=== PATIENT | female | born 1985 | race Caucasian/White ===

== ENCOUNTER 2020-08-02 13:39 | Outpatient (REF) | payer OTHER, SELFPAY ==
[2020-08-03 08:24] LABS: BV Int Neg Control Negative (Negative); BV Int Pos Control Positive (Positive)
[2020-08-03 14:56] LABS: C. trachomatis RNA TMA NOT DETECTED (NOT DETECTED); N. gonorrhoeae RNA TMA NOT DETECTED (NOT DETECTED)
[2020-08-07 13:31] LABS: HPV mRNA E6/E7 rflx Not Detected (Not Detected)
== END 2020-08-02 13:40 | disposition home or self-care (01) ==
LOC: HO.LAB 13:39
PROVIDERS: PCP Family Medicine Geriatric Medicine; Visit Provider Advanced Practice Midwife
DX: Z01.419 Encounter for gynecological examination (general) (routine) without abnormal findings (principal); Z11.51 Encounter for screening for human papillomavirus (HPV); L63.9 Alopecia areata, unspecified; Z20.2 Contact with and (suspected) exposure to infections with a predominantly sexual mode of transmission; Z87.42 Personal history of other diseases of the female genital tract
CPT/HCPCS: 36415; 87480; 87491; 87510; 87591; 87624; 87660; 88142

== ENCOUNTER 2022-11-04 10:19 | Outpatient (REF) | payer OTHER, SELFPAY ==
[2022-11-05 05:53] LABS: CT PCR NOT DETECTED (Not Detect.); NG PCR NOT DETECTED (Not Detect.)
[2022-11-05 12:04] LABS: BV Int Neg Control Negative (Negative); BV Int Pos Control Positive (Positive)
[2022-11-07 02:29] LABS: HPV mRNA E6/E7 rflx Not Detected (Not Detected)
== END 2022-11-04 10:20 | disposition home or self-care (01) ==
LOC: HO.LNP 10:19
PROVIDERS: PCP Family Medicine Geriatric Medicine; Visit Provider Advanced Practice Midwife
DX: Z01.419 Encounter for gynecological examination (general) (routine) without abnormal findings (principal); L63.9 Alopecia areata, unspecified; Z87.42 Personal history of other diseases of the female genital tract; Z98.51 Tubal ligation status; Z20.2 Contact with and (suspected) exposure to infections with a predominantly sexual mode of transmission; Z79.899 Other long term (current) drug therapy
CPT/HCPCS: 0353U; 87480; 87510; 87624; 87660; 88142

== ENCOUNTER 2023-11-11 11:36 | Outpatient (AMB) | payer OTHER, SELFPAY ==
--- NOTE | 2023-11-11 11:46 | A.OFFVIS_ITS ---
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 Doing well with concerns: Decreased libido for a last year and a half, she is tired in overwhelmed with working many hours, housework, household duties and children. She report speaking with Glo Anderson last year and was suggested she has OCD due to her excessive cleaning for vulvar hygiene as she dislikes any discharge and reports some dryness, showers twice a day. She admits to self- esteem issues with her body image. She reports her partner is caring, supportive and very understanding. She tries to eat healthy and stays active with exercise. Regular monthly menses. History of bilateral tubal ligation. Currently is sexually active with same partner of 19 years. She denies vaginal itching and irritation. STI screening offered; she declined. Denies family history of breast, ovarian or colon cancer. Last pap smear 2020, negative. History of LEEP. [facility] Medical History Hx of abnormal cervical Pap smear Chronic constipation Surgical History History of loop electrical excision procedure (LEEP) Hx of tubal ligation Family History Son Heart abnormality Maternal Aunt Colon cancer Social History Alcohol intake: never Gender identity: Female Female Reproductive History Menstrual Age of Menarche: 13 Duration of menses: 6-7 days Date of last menstrual period: 11/02/23 control method: permanent sterilization Total pregnancies: 7 Full term: 5 Number of Living Children: 5 Ab spontaneous: 2 Date of last pap smear: 11/05/22 (negative) History of abnormal pap smear: Yes (2012 CIN3) Review of Systems Const All systems reviewed & are unremarkable except as noted in HPI and below Reports as per HPI Eyes Reports no additional complaints ENT Reports no additional complaints Card Reports no additional complaints Resp Reports no additional complaints GI Reports as per HPI and Reports no additional complaints Reports as per HPI Musc Reports no additional complaints Skin/Breast Reports as per HPI Neuro Reports no additional complaints Psych Reports no additional complaints Endo Reports no additional complaints Jose/Lymph Reports no additional complaints Aller/Immun Reports no additional complaints Physical Exam Vital Signs: Last Vital Signs BP 120/70 11/11/23 11:48 BMI result Body Mass Index 29.5 Const General: cooperative, healthy appearing, no acute distress, well developed and alert Orientation/consciousness: patient oriented x3 HEENT Head: Yes normal to inspection Eyes General: appearance normal, both eyes and all related structures Neck Neck: Yes normal visual inspection Thyroid: Thyroid normal Chest Chest palpation & inspection: normal inspection of the chest and other (no puckering, dimpling, peau de orange, retraction, discharge, masses) Breast/axilla inspection: normal inspection of the breasts Breast/axilla palpation: normal palpation of the breasts Resp Effort & Inspection: normal respiratory effort GI Inspection: Yes normal to inspection Palpation (GI): Soft to palpation Rectal Exam - Female: deferred General: Yes bladder normal to palpation External Female Exam: normal external appearance and normal appearance of the urethra Speculum Exam - Vagina: normal appearance of the vagina, normal palpation and normal vaginal discharge Speculum Exam - Cervix: normal appearance of the cervix, normal palpation, Nabothian cyst present (Multiple) and Other cervical findings present (Post LEEP appearance, bled slightly with Pap) Bimanual exam- vagina & uterus: normal bimanual exam, normal palpation, uterine size normal, bladder normal to palpation, normal palpation and non-tender Bimanual Exam- Adnexa, other: no masses Skin General skin exam: no rashes or lesions noted Rashes: no rashes Neuro General: patient oriented x3 Cognition (Neuro): normal cognition Extrem General: Yes normal to inspection Psych Attitude: cooperative Thought process: Normal thought process present Assessment & Plan Assessment & Plan (1) Encounter for gynecological examination (general) (routine) with abnormal findings: Code(s): Z01.411 - Encounter for gynecological examination (general) (routine) with abnormal findings Category: Medical Plan: Discussed: Current recommendations for pap smears per ASCCP guidelines. Pap smear obtained. Breast awareness and periodic breast exams. Maintain a healthy lifestyle including a well balanced diet and routine exercise. Libido concerns, excessive hygiene practices, purpose of vaginal discharge and natural ciro balance. Consider therapy, patient declines referral and will pursue a therapist on her own. Self-esteem concerns, encouraged to follow through with therapy. Patient verbalizes understanding and agrees to the plan of care. She was given opportunity to ask questions and all questions were answered to the best of my ability. RTO in one year for annual lime kiln operator examination. This note is constructed using voice recognition software. While every effort has been made to ensure accuracy, commercial sales consultant errors may have been included. Coding Level of Care Code Est Pt Prev Care 18-39y(41308) Diagnoses Encounter for gynecological examination (general) (routine) with abnormal findings Z01.411
[2023-11-11 11:48] VITALS: BP 120/70; BMI 29.5
== END 2023-11-11 12:38 | disposition home or self-care (01) ==
PROVIDERS: Visit Provider Advanced Practice Midwife
DX: Z01.411 Encounter for gynecological examination (general) (routine) with abnormal findings (principal)
CPT/HCPCS: 99395

== ENCOUNTER 2023-11-11 11:36 | Outpatient (REF) | payer OTHER, SELFPAY ==
[2023-11-19 01:39] LABS: HPV mRNA E6/E7 rflx Not Detected (Not Detected)
== END 2023-11-11 11:37 | disposition home or self-care (01) ==
LOC: HO.LNP 11:36
PROVIDERS: Visit Provider Advanced Practice Midwife
DX: Z01.411 Encounter for gynecological examination (general) (routine) with abnormal findings (principal); R68.82 Decreased libido; Z87.42 Personal history of other diseases of the female genital tract
CPT/HCPCS: 87624; 88142; 99395

== ENCOUNTER 2024-10-19 12:54 | Outpatient (REF) | payer OTHER, SELFPAY ==
--- OUTSIDE RECORDS SUMMARY | 2024-10-19 14:40 | XMS_ITS | Clinical Summary ---
Author Organization [facility] ity Address [address] [place] [address] Care Team Providers Care Cassandra Developer Name Role Phone Unavailable Primary Care Provider [...]
== END 2024-10-19 12:55 | disposition home or self-care (01) ==
LOC: HO.LAB 12:54
PROVIDERS: PCP Family Medicine Geriatric Medicine; Visit Provider Advanced Practice Midwife
DX: N93.9 Abnormal uterine and vaginal bleeding, unspecified (principal)
CPT/HCPCS: 81025

== ENCOUNTER 2024-10-19 12:54 | Outpatient (AMB) | payer OTHER, SELFPAY ==
[2024-10-19 13:05] VITALS: BP 110/60; BMI 29.5
--- NOTE | 2024-10-19 13:05 | A.OFFVIS_ITS ---
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 History of irregular menstrual bleeding, closely spaced for several months. HMB and cramping x 8-9 days. Has used Midol without relief. Additionally she reports brain fog, forgetfulness, PMS symptoms, weight gain, muscle and joint pain, depression and anxiety, moodiness, including anger, irritability, sensitive to heat and cold changes. History of tubal ligation. [facility] Medical History (Updated 10/19/24 @ 13:39 by Alanis Clifford CNM) Fatigue Abnormal uterine bleeding (AUB) Hx of abnormal cervical Pap smear Chronic constipation Surgical History History of loop electrical excision procedure (LEEP) Hx of tubal ligation Family History Son Heart abnormality Maternal Aunt Colon cancer Social History Alcohol intake: never Gender identity: Female Female Reproductive History Menstrual Age of Menarche: 13 control method: permanent sterilization Permanent Sterilization: BTL Total pregnancies: 7 Full term: 5 Number of Living Children: 5 Ab spontaneous: 2 Date of last pap smear: 11/11/23 (neg pap and hpv) History of abnormal pap smear: Yes (2012 SUYAPA 3 hx leep) Review of Systems Const All systems reviewed & are unremarkable except as noted in HPI and below Physical Exam Vital Signs: Last Vital Signs BP 110/60 10/19/24 13:05 BMI result Body Mass Index 29.5 Const General: cooperative, healthy appearing and no acute distress Orientation/consciousness: patient oriented x3 GI Inspection: Yes normal to inspection Palpation (GI): Soft to palpation and Other GI palpation findings present (Nontender) Rectal Exam - Female: visual inspection normal General: Yes bladder normal to palpation External Female Exam: normal appearance of the urethra Speculum Exam - Vagina: normal appearance of the vagina, normal palpation and normal vaginal discharge Speculum Exam - Cervix: normal appearance of the cervix, normal palpation, Nabothian cyst present (Multiple) and Other cervical findings present (Post LEEP appearance, bled w/culture swab) Bimanual exam- vagina & uterus: normal bimanual exam, normal palpation, uterine size normal, bladder normal to palpation, normal palpation, uterine shape normal and non-tender Bimanual Exam- Adnexa, other: normal adnexae Neuro General: patient oriented x3 Results AMB Test Urine AMB Test Urine Negative Last Edit by ISAAK Butterfield on 10/19/24 13:09 Results Reviewed Results Reviewed: Laboratory Last Values [facility]st Clinic Negative 10/19/24 13:08 Assessment & Plan Assessment & Plan (1) Abnormal uterine bleeding (AUB): Code(s): N93.9 - Abnormal uterine and vaginal bleeding, unspecified Category: Medical Plan: Workup for AUB reviewed to include cervical cultures, pelvic ultrasound and lab work. Possible endometrial biopsy if indicated or hysteroscopy pending findings. Follow up in person for test results and plan of care further discussion on treatment options. Continue with ibuprofen increase the dose to 600 mg every 6 hours with food and fluids with onset of cramping and bleeding, per manufacture's recommendations. The patient expressed understanding and agreement with the plan of care. All of her questions and concerns were addressed to the best of my ability. Total time I personally spent on visit and management today: ?35 minutes. Time spent included review of pertinent office notes in the electronic health record; review of laboratory and imaging results; review of personal family medical history; performing physical exam; discussing diagnosis and plan of care with the patient; documenting the encounter in the EMR. (2) Fatigue: Code(s): R53.83 - Other fatigue Category: Medical Qualifiers: Fatigue type: unspecified Qualified Code(s): R53.83 - Other fatigue Plan: Lab work ordered. Follow up pending results. Plan This note is constructed using voice recognition software. While every effort has been made to ensure accuracy, software project lead errors may have been included. Orders: Orders AMB HCG Urine Test Today N93.9 - Abnormal uterine and vaginal bleeding, unspecified Bacterial Vaginosis Panel Today N93.9 - Abnormal uterine and vaginal bleeding, unspecified Complete Blood Count no Diff Today N93.9 - Abnormal uterine and vaginal bleeding, unspecified, R53.83 - Other fatigue CT NG by PCR Today N93.9 - Abnormal uterine and vaginal bleeding, unspecified US pelvic and transvaginal Today N93.9 - Abnormal uterine and vaginal bleeding, unspecified Thyroid Stimulating Hormone Today N92.1 - Excessive and frequent menstruation with irregular cycle Vitamin D 25-OH (D2 and D3) Today R53.83 - Other fatigue Coding Level of Care Code Est Pt Level 3 (85321) Diagnoses Abnormal uterine bleeding (AUB) N93.9 Fatigue, unspecified type R53.83 Fatigue type: unspecified
--- OUTSIDE RECORDS SUMMARY | 2024-10-19 14:02 | XMS_ITS | Clinical Summary ---
Author Organization [facility] ity Address [address] [place] [address] Care Team Providers Care Manager Infusion Name Role Phone Unavailable Primary Care Provider Unavailabl e Social History Tobacco Use Types Packs/Day Years Used Date Smoking Tobacco: Never Assessed Comments Unknown Sex and Gender Information Value Date Recorded Sex Assigned at Not on file Legal Sex Female 11:13 AM EST Gender Identity Not on file Sexual Orientation Not on file Plan of Treatment Health Maintenance Due Date Last Done Comments DTaP,Tdap,and Td Vaccines (1 - Tdap) 2004 Hepatitis B Vaccines (1 of 3 - 19+ 3-dose series) 2004 Cervical Cancer Screening: P ap Smear 2006 COVID-19 Vaccine ( - 2023-2 5 season) 2024 Depression Screening 03/22/2024 HIV Screening 03/22/2024 Hepatitis C Screening 03/22/2024 Social Influencers of Health Screening 03/22/2024 Influenza Vaccine (Season Ended) 2025 HIB Vaccines Aged Out No longer eligi ble based on patient's age to complete this topic HPV Vaccines Aged Out No longer eligi ble based on patient's age to complete this topic Hepatitis A Vaccines Aged Out No long er eligible based on patient's age to complete this topic IPV Vaccines Aged Out No longer eligi ble based on patient's age to complete this topic MMR Vaccines Aged Out No longer eligi ble based on patient's age to complete this topic Meningococcal ACWY Vaccine Aged Out N o longer eligible based on patient's age to complete this topic Meningococcal B Vaccine Aged Out No l onger eligible based on patient's age to complete this topic Pneumococcal Vaccine: Pediat rics (0 to 5 Years) and At-Risk Patients (6 to 64 Years) Aged Out No longer eligible b ased on patient's age to complete this topic RSV Immunization Patients Un german 20 months Aged Out No longer eligible b ased on patient's age to complete this topic Varicella Vaccines Aged Out No longer eligible based on patient's age to complete this topic
== END 2024-10-19 13:32 | disposition home or self-care (01) ==
LOC: HO.HWS 12:54
PROVIDERS: PCP Family Medicine Geriatric Medicine; Visit Provider Advanced Practice Midwife
DX: N93.9 Abnormal uterine and vaginal bleeding, unspecified (principal); R53.83 Other fatigue
CPT/HCPCS: 99213

== ENCOUNTER 2024-10-19 13:23 | Outpatient (REF) | payer OTHER, SELFPAY ==
[2024-10-19 13:59] LABS: Hematocrit 40.7 % (37.0-47.0); Hemoglobin 13.8 g/dl (12.0-16.0); Mean Corpuscular HGB Conc 33.9 g/dl (31.0-35.0); Mean Corpuscular Hemoglobin 28.4 pg (27.0-33.0); Mean Corpuscular Volume 83.7 fL (80.0-98.0); Mean Platelet Volume 10.6 fL (9.4-12.3); Platelet Count 244 X10*3/uL (160-400); Red Blood Count 4.86 X10*6/uL (4.20-5.50); Red Cell Distribution Width 13.4 % (11.0-16.0); White Blood Count 8.2 X10*3/uL (4.8-10.8)
[2024-10-19 14:41] LABS: Thyroid Stimulating Hormone 2.38 uIU/mL (0.32-4.0)
[2024-10-19 16:42] LABS: Bacterial Vaginosis PCR NEGATIVE (Negative); Candida Group PCR NOT DETECTED (Not Detect); Candida glab krusei PCR NOT DETECTED (Not Detect); Trichomonas vaginalis PCR NOT DETECTED (Not Detect)
[2024-10-19 17:16] LABS: CT PCR NOT DETECTED (Not Detect.); NG PCR NOT DETECTED (Not Detect.)
[2024-10-23 14:48] LABS: Vitamin D 25-OH, D2 <4 ng/mL; Vitamin D 25-OH, D3 14 ng/mL; Vitamin D 25-OH, Total 14 ng/mL (30-100)
== END 2024-10-19 13:24 | disposition home or self-care (01) ==
LOC: HO.LNP 13:23
PROVIDERS: Visit Provider Advanced Practice Midwife
DX: N93.9 Abnormal uterine and vaginal bleeding, unspecified (principal); N92.1 Excessive and frequent menstruation with irregular cycle; R53.83 Other fatigue; Z20.2 Contact with and (suspected) exposure to infections with a predominantly sexual mode of transmission
CPT/HCPCS: 81515; 82306; 84443; 85027; 87491; 87591

== ENCOUNTER 2024-10-27 15:04 | Outpatient (AMB) | payer OTHER, SELFPAY ==
--- NOTE | 2024-10-27 15:04 | MHC.OFFVIS ---
Intake Visit Reasons: TV lab results Intake Note: cell # [phone] [employer] [place] [facility]: [employer] [facility] [place] [facility] Present Allergies No Known Drug Allergies Allergy (Unknown, Verified 10/19/24 13:05) U sertraline [Zoloft] Allergy (Unknown, Verified 10/19/24 13:05) rash Is last menstrual period known: Yes HPI Comments Details: Tele Health Visit Total time I personally spent on visit and management today: 20 minutes. Time spent included review of pertinent office notes in the electronic health record; review of laboratory and imaging results; review of personal family medical history; discussing diagnosis and plan of care with the patient; documenting the encounter in the EMR. Patient presents to discuss: Lab results-history of abnormal uterine bleeding, and fatigue. Labs: Vitamin-D 14. TSH 2.38. Hemoglobin 13.8. PFSH Medical History (Updated 10/27/24 @ 15:50 by Alanis Clifford CNM) Vitamin D deficiency Fatigue Abnormal uterine bleeding (AUB) Hx of abnormal cervical Pap smear Chronic constipation Surgical History History of loop electrical excision procedure (LEEP) Hx of tubal ligation Family History Son Heart abnormality Maternal Aunt Colon cancer Social History Alcohol intake: never Gender identity: Female Female Reproductive History Menstrual Age of Menarche: 13 Review of Systems Const All systems reviewed & are unremarkable except as noted in HPI and below Endo Reports no additional complaints Physical Exam Const General: cooperative, healthy appearing and no acute distress Psych Appearance: well kempt Attitude: cooperative Thought process: Normal thought process present Telehealth Telehealth Telehealth Platform: BestBoy Keyboard Location of provider rendering services: practice address Location of patient: address on file Patient Identification confirmed using: Name, : Yes Telehealth method: video Patient verbally consented to treatment: Yes Patient verbally consented to billing insurance company: Yes Patient informed of any privacy concerns related to visit: Yes Assessment & Plan Assessment & Plan (1) Abnormal uterine bleeding (AUB): Code(s): N93.9 - Abnormal uterine and vaginal bleeding, unspecified Category: Medical Plan: Reviewed plan of care for appointment follow up. Ultrasound scheduled an EMB will be combined with the Mirena insertion appointment. Follow up EMB appointment will be combined with annual exam. Patient to have her appointments readjusted. Rx sent in for menstrual cramping to the pharmacy. The patient expressed understanding and agreement with the plan of care. All of her questions and concerns were addressed to the best of my ability. (2) Vitamin D deficiency: Comment: Supplementing 50 mcg Code(s): E55.9 - Vitamin D deficiency, unspecified Category: Medical Plan Discussed labs today Rx sent in for vitamin-D supplementation, directions reviewed for taking, consider rechecking level in 4-5 months. The patient expressed understanding and agreement with the plan of care. All of her questions and concerns were addressed to the best of my ability. This note is constructed using voice recognition software. While every effort has been made to ensure accuracy, experience design director errors may have been included. Medications: New cholecalciferol (vitamin D3) 50 mcg PO DAILY 3 months 90 caps 1RF ibuprofen take medication 1-3 days of your menses for cramping with food 600 mg PO Q6H PRN 60 tabs 0RF pain Coding Level of Care Code Est Pt Level 3 (16912) Diagnoses Abnormal uterine bleeding (AUB) N93.9 Vitamin D deficiency E55.9
--- OUTSIDE RECORDS SUMMARY | 2024-10-27 15:43 | XMS_ITS | Clinical Summary ---
Author Organization [facility] ity Address [address] [place] [address] Care Team Providers Care Insurance Counselor Name Role Phone Unavailable Primary Care Provider [...] complete this topic RSV Immunization Patients Un egrman 20 months Aged Out No longer eligible b ased on patient's age to complete this topic Varicella Vaccines Aged Out No longer eligible based on patient's age to complete this topic
== END 2024-10-28 07:25 | disposition home or self-care (01) ==
LOC: HO.HWS 15:04
PROVIDERS: PCP Family Medicine Geriatric Medicine; Visit Provider Advanced Practice Midwife
DX: N93.9 Abnormal uterine and vaginal bleeding, unspecified (principal); E55.9 Vitamin D deficiency, unspecified
CPT/HCPCS: 99213

== ENCOUNTER 2024-12-29 15:44 | Outpatient (REF) | payer OTHER, SELFPAY ==
--- NOTE | ~2024-12-29 | US_ITS ---
EXAMINATION: US PELVIS CLINICAL INFORMATION: Abnormal uterine/vaginal bleeding, irregular menses COMPARISON: July 01 2016 TECHNIQUE: Ultrasound of the pelvis is performed using both transabdominal and transvaginal transducers along with Doppler. Transvaginal imaging is performed due to inadequate visualization transabdominally. FINDINGS: Uterus: The uterus is anteverted and measures 9.0 x 4 x 5 cm. The double wall endometrial thickness is 6 mm. The uterus is smooth in contour and has normal myometrial echogenicity. No visible fibroid. Adnexa: Both ovaries are visualized. There is normal color flow to the adnexa. There is no ovarian torsion. There is no pelvic ascites or fluid collection. Right ovary measures 5.5 x 3.5 x 4.2 cm. There is a 3.8 x 2.7 x 3.9 cm anechoic cyst Left ovary measures 2.6 x 1.9 x 2.2 cm. US/US pelvic and transvaginal IMPRESSION: 3.9 cm anechoic simple cyst in the right ovary requires no imaging follow-up. Electronically signed by: Preet Berry MD 12/29/2024 04:23 PM EDT
--- OUTSIDE RECORDS SUMMARY | 2024-12-29 16:13 | XMS_ITS | Clinical Summary ---
[facility] Address [address] [place] [address] Care Team Providers Care Dairy Supplies Sales Representative Name Role Phone Unavailable Primary Care Provider [...] Influencers of Health Screening 03/22/2024 Influenza Vaccine (#1) 2025 HIB Vaccines Aged Out No longer [...] 5 Years) and At-Risk Patients (6 to 49 Years) Aged Out No longer eligible b ased on patient's age to complete this topic RSV Immunization Patients Un german 20 months Aged Out No longer eligible b ased on patient's age to complete this topic Varicella Vaccines Aged Out No longer eligible based on patient's age to complete this topic
== END 2024-12-29 15:45 | disposition home or self-care (01) ==
LOC: HO.US 15:44
PROVIDERS: PCP Family Medicine Geriatric Medicine; Visit Provider Advanced Practice Midwife
DX: N93.9 Abnormal uterine and vaginal bleeding, unspecified (principal)
CPT/HCPCS: 76830; 76856

== ENCOUNTER → 2024-12-29 15:45 | Outpatient (BNV) | payer OTHER, SELFPAY | PROVIDERS: PCP Family Medicine Geriatric Medicine; Visit Provider Radiology Diagnostic Radiology | DX: N93.9 Abnormal uterine and vaginal bleeding, unspecified (principal) | CPT/HCPCS: 76830; 76856 ==

== ENCOUNTER 2025-01-25 15:42 | Outpatient (AMB) | payer OTHER, SELFPAY ==
--- NOTE | 2025-01-25 15:42 | MHC.OFFVIS ---
Intake Visit Reasons: ultra sound follow up/emb/? mirena Neon Electrician: Neon Electrician Present (Rosa) Accompanied by: Spouse Allergies No Known Drug Allergies Allergy (Unknown, Verified 01/31/25 13:25) U sertraline (Zoloft) Allergy (Unknown, Verified 01/31/25 13:25) rash Is last menstrual period known: Yes HPI Comments Details: Patient is here today for a follow up due to AUB for EMB, accompanied by her , Martir. Bled from November 27-December 13, December 22-, currently bleeding. Was considering a Mirena IUD insert, but is uncertain, wants to speak to her oil field tester about risk factors with potential hair loss. History of alopecia, now and a BRITTANY inhibitor trial. [facility] Medical History (Updated 01/31/25 @ 16:36 by Alanis Clifford CNM) IUD (intrauterine device) in place Ovarian cyst Vitamin D deficiency Fatigue Abnormal uterine bleeding (AUB) Hx of abnormal cervical Pap smear Chronic constipation Surgical History History of loop electrical excision procedure (LEEP) Hx of tubal ligation Family History Son Heart abnormality Maternal Aunt Colon cancer Social History Alcohol intake: never Gender identity: Female Female Reproductive History Menstrual Age of Menarche: 13 Review of Systems Const All systems reviewed & are unremarkable except as noted in HPI and below Endo Reports no additional complaints Physical Exam Const General: cooperative, healthy appearing and no acute distress Psych Appearance: well kempt Attitude: cooperative Thought process: Normal thought process present Assessment & Plan Assessment & Plan (1) Ovarian cyst: Code(s): N83.209 - Unspecified ovarian cyst, unspecified side Category: Medical Qualifiers: Laterality: right Qualified Code(s): N83.201 - Unspecified ovarian cyst, right side Plan: Discussed by benign cyst less than 4 cm, if any pain follow up in the office sooner, or sudden significant pain to report to the ED plan recheck not necessary patient feels strongly about repeating in checking on the cyst would like to complete another ultrasound. Orders placed plan follow up visit. The patient expressed understanding and agreement with the plan of care. All of her questions and concerns were addressed to the best of my ability. (2) Abnormal uterine bleeding (AUB): Code(s): N93.9 - Abnormal uterine and vaginal bleeding, unspecified Category: Medical Plan Plan follow up EMB/Mirena same day, after she speaks w/her oil field tester tomorrow regarding Mirena use and concerns for hair loss. Reschedule appointment for combined procedures. Pre procedure counseling, anticipatory guidance-take 3 Ibuprofen one hour before procedure w/food and fluids. CBC today. Advised to hydrate well and report any increase in bleeding pattern or symptoms. The patient expressed understanding and agreement with the plan of care. All of her questions and concerns were addressed to the best of my ability. Orders: Orders US pelvic and transvaginal 2 Months N83.209 - Unspecified ovarian cyst, unspecified side Complete Blood Count no Diff 01/25/25 N93.9 - Abnormal uterine and vaginal bleeding, unspecified AMB HCG Urine Test 01/26/25 Z32.02 - Encounter for test, result negative Coding Level of Care Code Tele Est Pt Level 3 (85009) Diagnoses Cyst of right ovary N83.201 Laterality: right Abnormal uterine bleeding (AUB) N93.9
--- OUTSIDE RECORDS SUMMARY | 2025-01-25 15:44 | XMS_ITS | Clinical Summary ---
Author Organization [facility] [employer] [facility] ity Address [address] [place] [address] Care Team Providers Care Manager Statistical Name Role Phone Unavailable Primary Care Provider [...] Vaccine ( - 2023-2 5 season) 2024 HIV Screening 03/22/2024 Hepatitis C Screening 03/22/2024 Social Influencers of Health Screening 03/22/2024 Depression Screening 06/15/2024 Influenza Vaccine (#1) 2025 HIB Vaccines Aged [...]
== END 2025-01-25 17:07 | disposition home or self-care (01) ==
LOC: HO.HWS 15:42
PROVIDERS: PCP Family Medicine Geriatric Medicine; Visit Provider Advanced Practice Midwife
DX: N83.201 Unspecified ovarian cyst, right side (principal); N93.9 Abnormal uterine and vaginal bleeding, unspecified
CPT/HCPCS: 99213

== ENCOUNTER 2025-01-25 15:42 | Outpatient (REF) | payer OTHER, SELFPAY ==
[2025-01-25 16:50] LABS: Hematocrit 40.1 % (37.0-47.0); Hemoglobin 13.2 g/dl (12.0-16.0); Mean Corpuscular HGB Conc 32.9 g/dl (31.0-35.0); Mean Corpuscular Hemoglobin 28.0 pg (27.0-33.0); Mean Corpuscular Volume 85.0 fL (80.0-98.0); NRBC Abs Auto 0.000 X10*3/uL (0.0-0.012); NRBC Pct Auto 0.0 /100WBC (0.0-0.2); Platelet Count 219 X10*3/uL (160-400); Red Blood Count 4.72 X10*6/uL (4.20-5.50); White Blood Count 14.3 X10*3/uL (4.8-10.8)
== END 2025-01-25 15:43 | disposition home or self-care (01) ==
LOC: HO.LAB 15:42
PROVIDERS: PCP Family Medicine Geriatric Medicine; Visit Provider Advanced Practice Midwife
DX: N83.201 Unspecified ovarian cyst, right side (principal); N93.9 Abnormal uterine and vaginal bleeding, unspecified; Z32.02 Encounter for pregnancy test, result negative
CPT/HCPCS: 36415; 85027

== ENCOUNTER → 2025-01-26 09:23 | Outpatient (BNV) | payer OTHER, SELFPAY | PROVIDERS: PCP Family Medicine Geriatric Medicine; Visit Provider Advanced Practice Midwife | DX: Z32.02 Encounter for pregnancy test, result negative (principal) | CPT/HCPCS: 81025 ==

== ENCOUNTER 2025-01-31 13:17 | Outpatient (REF) | payer OTHER, SELFPAY | END 2025-01-31 13:18 | disposition home or self-care (01) | LOC: HO.LNP 13:17 | PROVIDERS: PCP Family Medicine Geriatric Medicine; Visit Provider Advanced Practice Midwife | DX: Z30.430 Encounter for insertion of intrauterine contraceptive device (principal); N93.9 Abnormal uterine and vaginal bleeding, unspecified; Z32.02 Encounter for pregnancy test, result negative | CPT/HCPCS: 58100; 58300; 81025; 88305; J7298 ==

== ENCOUNTER 2025-01-31 13:17 | Outpatient (AMB) | payer OTHER, SELFPAY ==
--- NOTE | 2025-01-31 13:24 | A.OFFVIS_ITS ---
Vital Signs 01/31/25 13:25 Height 5 ft 1 in BP 120/76 Intake Visit Reasons: EMB/ Mirena insertion Multiple Needle Stitcher: Multiple Needle Stitcher Present (Rayne) Allergies No Known Drug Allergies Allergy (Unknown, Verified 01/31/25 13:25) U sertraline (Zoloft) Allergy (Unknown, Verified 01/31/25 13:25) rash Is last menstrual period known: Yes Last menstrual period: 01/22/25 HPI Comments Details: Patient is here today for an endometrial biopsy and Mirena IUD insertion. History of AUB. UPT is negative. Currently on her cycle. History of tubal ligation. [facility] Medical History (Updated 01/25/25 @ 16:24 by Alanis Clifford CNM) Ovarian cyst Vitamin D deficiency Fatigue Abnormal uterine bleeding (AUB) Hx of abnormal cervical Pap smear Chronic constipation Surgical History History of loop electrical excision procedure (LEEP) Hx of tubal ligation Family History Son Heart abnormality Maternal Aunt Colon cancer Social History Alcohol intake: never Gender identity: Female Female Reproductive History Menstrual Age of Menarche: 13 Date of last menstrual period: 01/22/25 Review of Systems Const All systems reviewed & are unremarkable except as noted in HPI and below Physical Exam Vital Signs: Last Vital Signs BP 120/76 01/31/25 13:25 Const General: cooperative, healthy appearing and no acute distress Orientation/consciousness: patient oriented x3 GI Inspection: Yes normal to inspection Palpation (GI): Soft to palpation and Other GI palpation findings present (Nontender) Rectal Exam - Female: visual inspection normal General: Yes bladder normal to palpation External Female Exam: normal appearance of the urethra Speculum Exam - Vagina: normal appearance of the vagina, normal palpation and normal vaginal discharge Speculum Exam - Cervix: normal appearance of the cervix, normal palpation and Other cervical findings present (Post LEEP appearance ) Bimanual exam- vagina & uterus: normal bimanual exam, normal palpation, uterine size normal, bladder normal to palpation, normal palpation, uterine shape normal and non-tender Bimanual Exam- Adnexa, other: normal adnexae Neuro General: patient oriented x3 Office Procedures IUD Insert/Removal Details Procedure code (CPT) selection complete Endometrial Biopsy Details: The patient is here today for an endometrial biopsy due to AUB to rule out any pathology including atypical, hyperplasia or cancer cells of the uterus. She was counseled regarding anticipatory guidance for the procedure including the risks for pain, infection, bleeding, perforation, potential injury to the tissues may include the cervix, uterus, tubes, bladder and bowels. These injuries may include further treatment and evaluation including surgery, blood transfusions, antibiotics, hospitalizations and anesthesia. Permanent injury and scarring can occur. She was consented for the procedure, and the consent forms were signed. She is agreeable to have the procedure today. All questions were answered. Endometrial Biopsy Procedure: The patient was placed in the dorsal lithotomy position and a sterile speculum inserted. Using aseptic technique for the procedure. The cervix was cleansed with Betadine x 3 swabs. A single toothed tenaculum was placed on the cervix for stabilization and the uterus was sounded to 7 cm with a 4mm pipelle, and tissue sample obtained. Minimal bleeding was observed. The tissue sample was placed in formalin in a patient labeled container by staff assisting and sent to the pathology department for processing and interpretation. The patient tolerate the procedure well and was in good condition when leaving the department. Endometrial Biopsy Post Procedure Care: Nothing in the vagina including: tampons, douching or intimacy until all the bleeding has subsided. There may be some post procedure bleeding for several days, this bleeding is usually light and may turn to a light brown or pink color. Mild cramps may occurs. Nothing in the vaginal including: tampons, douching, or intimacy until all the bleeding has subsided. You may take an over the counter mild analgesic such as Tylenol or Advil (if no allergies) per the manufactures recommendation on dosing, frequency, and follow the directions completely. Call the office if any: fever (over 100.4), flu like symptoms, abdominal pain (worse than cramping), foul smelling, infected appearing vaginal discharge, or heavy bleeding. If indicated: Use condoms to prevent and STI's, and only after the bleeding has stopped completely. Return to the office in 2 weeks for results and plan of care. This note is constructed using voice recognition software. While every effort has been made to ensure accuracy, termite inspector errors may have been included. 97274-Nndyaaehaay Biopsy IUD Insert/Removal Details Details: The patient is here today for a Mirena IUD insertion. She was counseled on the side effects including: menstrual cycle changes, pain, infection, bleeding, or expulsion. Risks of injury to the vagina, cervix, uterus, tubes, ovaries, bowel, bladder, and any adjacent tissue, resulting in nerve damage, scarring, and pain. Risks complications for the procedure that may require other test including ultrasounds, Xray, CT or MRI scan, surgery, anesthesia, blood transfusion. A urine test was completed and was negative. She was consented for the IUD insertion and has signed the consent form. All questions were answered. IUD Insertion: The patient was placed in the dorsal lithotomy position and a sterile speculum was inserted. The procedure was completed under aseptic technique. The cervix and vagina were cleansed with a Betadine solution x 3 swabs. A single toothed tenaculum was applied to the cervix for stabilization, and the uterus was sounded to 7 cm. The device was inserted and released with a gentle motion. Bleeding from the tenaculum sites and the procedure were minimal. The strings were trimmed to 3cm. All of the equipment was removed and the bimanual was normal, no tip was palpable at the cervical os. The patient tolerated the procedure well and left the office in good condition. Post IUD Insertion Care: There may be some post insertion bleeding for several days that is usually light and can turn to a light brown or pink in color. Mild cramping may occur. Nothing in the vagina including: tampons, douching or intimacy for several days. You may take an over the counter mild analgesia like Tylenol or Advil (if no allergies), per the manufacturers recommendations on dosing and frequency. Follow the directions completely. Call the office if any: fever (over 100.4), flu like symptoms, abdominal pain, worsening cramping not resolved with over the counter medications, foul smelling vaginal odor, signs of infected appearing discharge, or heavy bleeding. Use a condom for a back up method if indicated for 7 days. Always use a condom for STI prevention; IUD's are not protective against STD's. Return to the office in 4-6 weeks for IUD recheck. This note is constructed using voice recognition software. While every effort has been made to ensure accuracy, termite inspector errors may have been included. Procedure code (CPT) selection complete Office Meds Mirena 21 mcg/24 hr (up to 8 years) 52 mg intrauterine device Performing Provider: Alanis Clifford CNM Performing Location: [facility] Administered by: ISAAK Butterfield on 01/31/25 16:04 Dose Route Admin Location Dispensed Lot Number Expiration Date FORMERLY NAMED [facility] [employer] Liaison Officer 1 device intrauterine 1 device [id number] 02/12/27 81473-735-71 [place] Total Dispensed Waste 1 device 0 % Results AMB Test Urine AMB Test Urine Negative Last Edit by ISAAK Butterfield on 01/31/25 13:26 Results Reviewed Results Reviewed: Laboratory Last Values Tst Clinic Negative 01/31/25 13:26 Assessment & Plan Assessment & Plan (1) Abnormal uterine bleeding (AUB): Code(s): N93.9 - Abnormal uterine and vaginal bleeding, unspecified Category: Medical Plan: Endometrial biopsy completed, see procedure notes. (2) Encounter for IUD insertion: Code(s): Z30.430 - Encounter for insertion of intrauterine contraceptive device Plan Mirena IUD inserted. See procedure notes. This note is constructed using voice recognition software. While every effort has been made to ensure accuracy, termite inspector errors may have been included. Orders: Orders Surgical Today N93.9 - Abnormal uterine and vaginal bleeding, unspecified AMB IUD Insertion/Removal - Practice Supplied Today N93.9 - Abnormal uterine and vaginal bleeding, unspecified AMB HCG Urine Test Today N93.9 - Abnormal uterine and vaginal bleeding, unspecified, Z32.02 - Encounter for test, result negative Coding Level of Care Code Procedure Only Diagnoses Abnormal uterine bleeding (AUB) N93.9 Encounter for IUD insertion Z30.430 CPT Codes Endometrial Biopsy - CPT: 12040-Nxnctoxyokc Biopsy ([id number])
[2025-01-31 13:25] VITALS: BP 120/76
--- OUTSIDE RECORDS SUMMARY | 2025-01-31 14:29 | XMS_ITS | Clinical Summary ---
Author Organization [facility] ity Address [address] [place] [address] Care Team Providers Care Leadership Development Manager Name Role Phone Unavailable Primary Care Provider [...]
== END 2025-02-01 07:43 | disposition home or self-care (01) ==
LOC: HO.HWS 13:17
PROVIDERS: PCP Family Medicine Geriatric Medicine; Visit Provider Advanced Practice Midwife
DX: N93.9 Abnormal uterine and vaginal bleeding, unspecified (principal); Z30.430 Encounter for insertion of intrauterine contraceptive device; Z32.02 Encounter for pregnancy test, result negative
CPT/HCPCS: 58100; 58300

== ENCOUNTER 2025-02-22 15:06 | Outpatient (AMB) | payer OTHER, SELFPAY ==
--- NOTE | 2025-02-22 15:07 | A.OFFVIS_ITS ---
Intake Visit Reasons: emb results Art Instructor: Art Instructor Present Allergies No Known Drug Allergies Allergy (Unknown, Verified 01/31/25 13:25) U sertraline (Zoloft) Allergy (Unknown, Verified 01/31/25 13:25) rash Is last menstrual period known: Yes HPI Comments Details: Tele Health Visit Total time I personally spent on visit and management today: 15 minutes. Time spent included review of pertinent office notes in the electronic health record; review of laboratory and imaging results; review of personal family medical history; discussing diagnosis and plan of care with the patient; documenting the encounter in the EMR. Patient presents to discuss: Endometrial biopsy results, history of AUB and recent Mirena IUD insertion. She reports cramping and bleeding not worsening. [facility] Medical History (Updated 01/31/25 @ 16:36 by Alanis Clifford CNM) IUD (intrauterine device) in place Ovarian cyst Vitamin D deficiency Fatigue Abnormal uterine bleeding (AUB) Hx of abnormal cervical Pap smear Chronic constipation Surgical History History of loop electrical excision procedure (LEEP) Hx of tubal ligation Family History Son Heart abnormality Maternal Aunt Colon cancer Social History Alcohol intake: never Gender identity: Female Female Reproductive History Menstrual Age of Menarche: 13 Review of Systems Const All systems reviewed & are unremarkable except as noted in HPI and below Endo Reports no additional complaints Physical Exam Const General: cooperative, healthy appearing and no acute distress Psych Appearance: well kempt Attitude: cooperative Thought process: Normal thought process present Telehealth Telehealth Telehealth Platform: Advanced Brain Monitoring Location of provider rendering services: practice address Location of patient: address on file Patient Identification confirmed using: Name, : Yes Telehealth method: video Patient verbally consented to treatment: Yes Patient verbally consented to billing insurance company: Yes Patient informed of any privacy concerns related to visit: Yes Results Reviewed Results Reviewed: Name: DaveyAlice T Age/Sex: 39/F Attending: Alanis Clifford CNM : 1985 Submitted by: Alanis Clifford CNM Copies to: PRUDENCIO ROBLEDO MD MR #: [id number] Status: DEP REF Collected: 01/31/25 Location: [facility] Received: 02/01/25 Diagnosis Endometrium, biopsy: Benign inactive endometrium with extensive breakdown, and benign endocervical glandular and squamous epithelium; no atypia or carcinoma. Clinical History AUB Microscopic Description Microscopic sections reviewed. Material Received Endometrial biopsy Gross Description Received in formalin labeled ?EMB? is a 1.8 x 1.5 x 0.45 cm aggregate of multiple irregular fragments of congested and hemorrhagic red-maroon tissue, mucus and blood, submitted in toto in a cassette labeled A. CEDS Copies To Alanis Clifford CNM [facility] [address] [place] [address] Drive [address] [place] [address] [id number] PRUDENCIO ROBLEDO MD [address] [place] [address] NOTE: Unless otherwise stated, all tissue is formalin-fixed and paraffin- embedded. Some or all of the immunohistochemical tests reported herein may have been developed and their performance characteristics determined by [facility]. They have not been cleared or approved by the U.S. Food and Drug Administration (FDA). However, the FDA has determined that such clearance or approval is not necessary. This laboratory is certified under the Clinical Laboratory Improvement Amendments of 1988 (CLIA) as qualified to perform high complexity clinical laboratory testing. Patient: Alice Mariscal Age/Sex: 39/F MR#: [id number] Page 1 of 2 Assessment & Plan Assessment & Plan (1) Encounter to discuss test results: Code(s): Z71.2 - Person consulting for explanation of examination or test findings Plan Discussed: Endometrial biopsy results- Diagnosis Endometrium, biopsy: Benign inactive endometrium with extensive breakdown, and benign endocervical glandular and squamous epithelium; no atypia or carcinoma. Patient has an IUD follow up in several weeks. Observe bleeding pattern for now most likely we will stabilize and lessened with time, call sooner if there is any concerns or pelvic pain. The patient expressed understanding and agreement with the plan of care. All of her questions and concerns were addressed to the best of my ability. This note is constructed using voice recognition software. While every effort has been made to ensure accuracy, roll plugger machine operator errors may have been included. Coding Level of Care Code Tele Est Pt Level 3 (58521) Diagnoses Encounter to discuss test results Z71.2
--- OUTSIDE RECORDS SUMMARY | 2025-02-22 18:14 | XMS_ITS | Clinical Summary ---
Author Organization [facility] ity Address [address] [place] [address] Care Team Providers Care Account Services Associate Name Role Phone Unavailable Primary Care Provider [...]
== END 2025-02-23 08:03 | disposition home or self-care (01) ==
LOC: HO.HWS 15:06
PROVIDERS: PCP Family Medicine Geriatric Medicine; Visit Provider Advanced Practice Midwife
DX: Z71.2 Person consulting for explanation of examination or test findings (principal)
CPT/HCPCS: 99213